=== PATIENT | female | born 1970 | race Caucasian/White ===

== ENCOUNTER 2020-07-26 01:14 | Outpatient (CLI) | payer BC, SELFPAY ==
[2020-07-26 22:35] LABS: SARS-CoV-2 RNA PCR Negative
== END 2020-07-26 01:15 | disposition home or self-care (01) ==
LOC: ANHCOVIDDT 01:14
PROVIDERS: PCP Internal Medicine; Visit Provider Internal Medicine Gastroenterology
DX: Z01.812 Encounter for preprocedural laboratory examination (principal); Z11.59 Encounter for screening for other viral diseases
CPT/HCPCS: 87635; C9803; U0003

== ENCOUNTER 2020-07-28 01:35 | Day surgery (SDC) | payer BC, SELFPAY ==
[2020-07-25 09:22] VITALS: BMI 28.4
[2020-07-28 10:10] VITALS: BP 112/73; PULSE 94; RESP 16; TEMP 36.8; O2SAT 97
--- NOTE | 2020-07-28 10:22 | WPDANESEPPF ---
Anes - Initial Pre Proc Eval Procedure: Operation Date: 07/28/20 11:00 Proposed Procedures p Colonoscopy - Surjit Valadez MD Date/Time: 07/28/20 10:22 Surgeon: Surjit Valadez MD Pre Op Diagnosis: ulcerative colitis Patient Data Age: 50 Gender: F Height: 5 ft 5 in Weight: 77.8 kg Last Vital Signs Temp 36.8 C 07/28/20 10:10 Pulse 94 07/28/20 10:10 Resp 16 07/28/20 10:10 BP 112/73 07/28/20 10:10 Pulse Ox 97 07/28/20 10:10 Allergies Allergy/AdvReac Type Severity Reaction Status Date / Time No Known Allergies Allergy Unverified 07/28/20 10:09 Home Medications Medication Instructions Recorded Confirmed Type albuterol sulfate 90 mcg/actuation 2 inhalation INHALATION Q4-6H PRN 12/21/19 07/25/20 History breath activated powder inhaler eletriptan 20 mg tablet See Rx Instructions PO .COMPLEX 12/21/19 07/25/20 Rx #10 tablet ibuprofen 600 mg tablet 600 mg PO BID PRN tablet 12/21/19 07/25/20 History mesalamine 1.2 gram tablet,delayed 2.4 gm PO DAILY 12/21/19 07/25/20 History release lorazepam 1 mg tablet 1 mg PO .QHS PRN #30 tablet 07/06/20 07/25/20 Rx fluticasone propionate 1 spray NASAL DAILY 07/25/20 07/25/20 History loratadine [Claritin] 10 mg PO DAILY 07/25/20 07/25/20 History yuxvtpfw-svd-kosl-FA-lutein 1 tablet PO DAILY 07/25/20 07/25/20 History [Centrum Silver Women] Patient hx anesthesia problems: none Family hx anesthesia problems: none PMFSH Surgical History Surgical History H/O prior ablation treatment Family History Family History Mother Patient's mother is in good health Father Patient's father is in good health Malignant neoplasm of prostate, Onset Age: 66 Social History Social History Smoking status: Never smoker Alcohol intake: current Drinks per week: 2 Alcohol use details: WINE Substance use: never Substance use type: does not use Living arrangements: alone Spiritual care concerns: No Anes - Eval Final PreProcedure Day of Procedure 07/28/20 10:22 Patient weight: overweight Heart: regular rate and rhythm Lungs: clear to auscultation Airway: Mallampati scale class II Neurological: alert and oriented Last oral intake: >/= 8 hours ASA classification: II Anesthetic plan: proceed Anesthesia type and monitoring: general GIVS and standard monitoring Informed Consent: The patient's anesthetic plan and its attendant risks and benefits were discussed with the patient/family/POA. Questions were solicited and answers provided to the satisfaction of the patient/family/POA.
[2020-07-28] MEDS: LACTATED RINGERS 1,000 ML 150 ML IV CONT (10:27)
--- NOTE | 2020-07-28 10:40 | WPDGICN ---
Assessment and Plan Assessment and plan (1) Ulcerative colitis: Code(s): K51.90 - Ulcerative colitis, unspecified, without complications Status: Acute Assessment and Plan: Patient has a limited form of ulcerative colitis appears to be mainly limited to the recto and rectosigmoid area. Plan is for Lialda to use to continue. High-fiber diet advised. Surveillance colonoscopy at 3-5 year intervals in the future. (2) Family history of colonic polyps: Code(s): Z83.71 - Family history of colonic polyps Status: Acute Assessment and Plan: Patient is a family history of colon polyps. Plan is for surveillance colonoscopies at about 5 year intervals. GI Consult Note Consult date/time: 07/28/20 10:40 HPI: Deyanira Vidal is a 50 year old female Seen in evaluation at the request of Dr. Lev Mijares. patient has a long history of ulcerative colitis. Presents today for surveillance examination. Last exam was 3 years ago. Patient states that her current weight appetite bowel movements normal. She denies abdominal pain she has had no bleeding. Family history is significant that her mother has had colon polyps. She presents today for surveillance exam. Review of Systems Review of Systems: All systems reviewed & are unremarkable except as noted in HPI and below PMFSH Surgical History Surgical History H/O prior ablation treatment Family History Family History Mother Patient's mother is in good health Father Patient's father is in good health Malignant neoplasm of prostate, Onset Age: 66 Social History Social History Smoking status: Never smoker Alcohol intake: current Drinks per week: 2 Alcohol use details: WINE Substance use: never Substance use type: does not use Living arrangements: alone Spiritual care concerns: No Meds Home Medications and Allergies Home Medications Medication Instructions Recorded Confirmed Type albuterol sulfate 90 mcg/actuation 2 inhalation INHALATION Q4-6H PRN 12/21/19 07/25/20 History breath activated powder inhaler eletriptan 20 mg tablet See Rx Instructions PO .COMPLEX 12/21/19 07/25/20 Rx #10 tablet ibuprofen 600 mg tablet 600 mg PO BID PRN tablet 12/21/19 07/25/20 History mesalamine 1.2 gram tablet,delayed 2.4 gm PO DAILY 12/21/19 07/25/20 History release lorazepam 1 mg tablet 1 mg PO .QHS PRN #30 tablet 07/06/20 07/25/20 Rx fluticasone propionate 1 spray NASAL DAILY 07/25/20 07/25/20 History loratadine [Claritin] 10 mg PO DAILY 07/25/20 07/25/20 History hytglywh-xxh-rqyc-FA-lutein 1 tablet PO DAILY 07/25/20 07/25/20 History [Centrum Silver Women] Allergies Allergy/AdvReac Type Severity Reaction Status Date / Time No Known Allergies Allergy Unverified 07/28/20 10:09 Vital Signs Vital Signs - 24 hr 07/28/20 10:10 Temperature 98.2 F Pulse Rate 94 Respiratory Rate 16 Blood Pressure 112/73 Pulse Oximetry 97 Exam Narrative: Exam Narrative: Physical exam reveals patient to be alert. Vital signs stable. HEENT exam unremarkable. She is anicteric. Lungs are clear to auscultation and percussion. Heart is without murmur or extra sounds. Abdominal exam bowel sounds are present soft nontender with no hepatosplenomegaly. Digital external rectal exam is normal.
[2020-07-28 11:25] VITALS: BP 90/59; PULSE 77; RESP 18; O2SAT 97
[2020-07-28 11:35] VITALS: BP 88/62; PULSE 76; RESP 17; O2SAT 100
[2020-07-28 11:45] VITALS: BP 94/59; PULSE 79; RESP 18; O2SAT 100
== END 2020-07-28 12:01 | disposition home or self-care (01) ==
PROVIDERS: PCP Internal Medicine; Visit Provider Internal Medicine Gastroenterology
PROC: 0DJD8ZZ Inspection of Lower Intestinal Tract, Via Natural or Artificial Opening Endoscopic (ICD-10-PCS; CPT 45378; principal; 2020-07-28 11:00)
DX: K63.5 Polyp of colon (principal); K51.90 Ulcerative colitis, unspecified, without complications; K57.30 Diverticulosis of large intestine without perforation or abscess without bleeding; K64.8 Other hemorrhoids; Z83.71 Family history of colonic polyps
CPT/HCPCS: 45385; 45380; 88305; J2704; J7120

== ENCOUNTER 2020-08-26 07:01 | Outpatient (NON) | payer BC, SELFPAY ==
[2020-08-26 19:13] LABS: SARS-CoV-2 RNA PCR Positive
== END 2020-08-26 07:02 ==
LOC: ANHCOVIDDT 07:01
PROVIDERS: PCP Internal Medicine; Visit Provider Internal Medicine
DX: U07.1 COVID-19 (principal)
CPT/HCPCS: 87635; C9803; U0003

== ENCOUNTER → 2020-11-15 15:00 | Outpatient (CLI) | payer BC, SELFPAY ==
--- NOTE | ~2020-11-15 | XR_ITS ---
EXAMINATION: XR hand LT 2V, XR wrist LT 2V DATE: 11/15/2020 15:11 INDICATION: Left hand and wrist pain post fall one day prior TECHNIQUE: 1. Posteroanterior and lateral views of the left wrist were obtained. 2. Dorsal palmar and lateral views of the left hand were obtained. COMPARISON: None. FINDINGS: Alignment of the hand and wrist are normal. No fracture identified. Large indolent appearing lytic l esion with thin sclerotic margins at the distal pole of the scaphoid most likely a geode/degenerative subchondral cyst. Minimal to mild osteoarthritis at the midcarpal, first carpometacarpal and multipl e distal interphalangeal joints. No focal soft tissue swelling. IMPRESSION: 1. 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 No acute osseous abnormality. Reviewed, dictated and finalized at location A. S DEPARTMENT MANAGER IMPRESSION: 1. Minimal to mild polyarticular osteoarthritis with typical distribution in th e left hand. No acute osseous abnormality.
== END ==
PROVIDERS: PCP Internal Medicine; Visit Provider Internal Medicine
DX: M19.042 Primary osteoarthritis, left hand (principal)
CPT/HCPCS: 73100; 73120

== ENCOUNTER 2023-12-26 14:46 | Outpatient (CLI) | payer BC, SELFPAY ==
--- NOTE | ~2023-12-26 | XR_ITS ---
XR chest 2V DATE: 12/26/2023 15:00 INDICATION: Congestion, cough TECHNIQUE: Normal heart size. Minimal aortic unfolding. No hilar or mediastinal enlargement. No pulmo nary infiltrate or consolidation, pleural effusion or pulmonary vascular congestion or pneumothorax i s detected. Osteopenia; included skeletal structures otherwise appear unremarkable. COMPARISON: No active cardiopulmonary disease FINDINGS: IMPRESSION: Reviewed, dictated and finalized at location B. IMPRESSION:
== END 2023-12-26 14:47 ==
PROVIDERS: PCP Nurse Practitioner Family; Visit Provider Nurse Practitioner Family
DX: R09.89 Other specified symptoms and signs involving the circulatory and respiratory systems (principal)
CPT/HCPCS: 71046

== ENCOUNTER 2025-06-16 08:40 | Outpatient (CLI) | payer BC, SELFPAY ==
--- NOTE | ~2025-06-16 | DEXA_ITS ---
Bone Density Report Name: JERRELL PRADO Age: 55 Sex: Female Ethnicity: White Date of : 1970 Indication: postmenopausal; screening for osteoporosis; height loss; Referring Provider: RICHARD SAWYER Study: Bone densitometry was performed. Exam Date: June 16, 2025 Accession number: [id number] Bone Density: Region BMD T-score Z-score Classification AP Spine(L1-L4) 0.827 -2.0 -0.8 Osteopenia Femoral Neck (Left) 0.697 -1.4 -0.2 Osteopenia Total Hip (Left) 0.791 -1.2 -0.4 Osteopenia Femoral Neck (Right) 0.741 -1.0 0.2 Normal Total Hip (Right) 0.791 -1.2 -0.4 Osteopenia Total Hip Mean 0.791 -1.2 -0.4 Osteopenia World Health Organization criteria for BMD impression classify patients as: Normal (T-score at or above -1.0), Osteopenia (T-score between -1.0 and -2.5), or Osteoporosis (T-score at or below -2.5). 10-year Fracture Risk(1): Major Osteoporotic Fracture 7.0% Hip Fracture 0.5% Reported Risk Factors: [place] (), Neck BMD=0.697, BMI=24.8 (1) FRAX(R) Version 3.08. Fracture probability calculated for an untreated patient. Fracture probability may be lower if the patient has received treatment. Clinical Information Provided by Patient: Patient maximum height was 66 Menopause Age: 51 No regular weight bearing exercise Drinks caffeinated beverages Onset of menses at age 13 Number of children 2 Impression: The patient has low bone mass, based on the Total Spine T-score. The patient has an estimated ten-year risk of hip fracture of 0.5% and an estimated ten-year risk of major fracture of 7%, based on the WHO FRAX algorithm. Discussion: BONE DENSITY IS LOW AT ONE OR MORE SKELETAL SITES. This patient's lowest T-score is low at one or more skeletal sites. It meets the World Health Organization's (WHO) criteria for ?low bone mass? (T-score between -1.0 and -2.5). The patient's 10-year risk of fracture as calculated by FRAX is less than the threshold where pharmacological therapy is recommended by the National Osteoporosis Foundation (NOF). However, all treatment decisions require clinical judgment and consideration of individual patient factors, including patient preferences, comorbidities, previous drug use, risk factors not captured in the FRAX model (e.g., frailty, falls, vitamin D deficiency, increased bone turnover, interval significant decline in bone density) and possible under or overestimation of fracture risk by FRAX. The patient should follow a healthful lifestyle (good nutrition with adequate calcium and vitamin D, and appropriate weight-bearing exercise). Follow-Up: Consider repeating this study in 2 to 3 years to reassess this patient's status, or sooner if there is some new clinical indication. Reported by: PRETTY on 06/16/2025 8:58:00 AM. Reviewed, dictated and finalized at location A.
== END 2025-06-16 08:41 | disposition home or self-care (01) ==
LOC: MICIMG 08:41
PROVIDERS: PCP Nurse Practitioner Family
DX: Z78.0 Asymptomatic menopausal state (principal); M85.88 Other specified disorders of bone density and structure, other site; M85.852 Other specified disorders of bone density and structure, left thigh; M85.851 Other specified disorders of bone density and structure, right thigh
CPT/HCPCS: 77080